=== PATIENT | female | born 1985 | race Caucasian/White ===

== ENCOUNTER 2019-07-21 20:51 | Emergency (ER) | payer SELFPAY ==
[2019-07-21 21:48] LABS: Bilirubin Negative (Negative); Blood, Urine Negative (Negative); Clarity Clear (Clear); Glucose, Urine (Dipstick) Negative (Negative); Leukocyte Negative (Negative); Nitrite Negative (Negative); Protein, Urine (Dipstick) Negative (Neg-Trace); Urobilinogen 0.2 mg/dL (Less than 2)
[2019-07-21 21:49] LABS: Pregnancy Test - Urine (BHCG) Negative (Negative); Pregu Control Background? CLEAR/WHITE (CLR/WHITE); Pregu Control Bar Appear? YES (CONTROL BAR); Specific Gravity 1.027 (1.002-1.036)
[2019-07-21] MEDS ORDERED: Dicyclomine 20 MG TAB ONE (22:27)
== END 2019-07-21 22:31 | disposition home or self-care (01) ==
LOC: SCSER 20:51
DX: R10.9 Unspecified abdominal pain (principal); F41.9 Anxiety disorder, unspecified; F17.210 Nicotine dependence, cigarettes, uncomplicated; Z79.899 Other long term (current) drug therapy
CPT/HCPCS: 81003; 81025; 99284

== ENCOUNTER 2019-08-07 21:06 | Emergency (ER) | payer SELFPAY ==
[2019-08-07 21:39] LABS: #Basophils 0.1 thou/uL (0.0-0.2); #Eosinphils 0.1 thou/uL (0.0-0.7); #Lymphocytes 3.5 thou/uL (1.20-3.40); #Monocytes 0.5 thou/uL (0.11-0.59); #Neutrophils 6.2 thou/uL (1.40-6.50); %Basophils 1.2 % (0.0-1.0); %Eosinophils 0.9 % (0.0-10.0); %Lymphocytes 33.2 % (21.0-51.0); %Monocytes 5.2 % (0.0-10.0); %Neutrophils 59.5 % (42.0-75.0); Mean Corpuscular HGB CONC 34.6 g/dL (32.0-36.0); Mean Corpuscular Volume 89.7 fL (78.0-98.0); Mean Platelet Volume 11.1 fL (7.4-10.4); Platelet Count 225 thou/uL (130-400); RBC Distribution Width 10.9 % (11.5-14.5); White Blood Cell (WBC) Count 10.4 thou/uL (4.8-10.8)
--- NOTE | 2019-08-07 21:45 | RAD ---
XR Chest 1 View Portable History: Shortness of breath Comparison: Radiograph 2013 Findings: Lungs are clear. No pneumothorax. No effusion. No acute osseous abnormality. Impression: No acute intrathoracic abnormality
[2019-08-07 21:51] LABS: ALT (SGPT) 21 U/L (8-55); AST (SGOT) 18 U/L (5-34); Albumin 4.4 g/dL (3.5-5.0); Alkaline Phosphatase 54 U/L (40-110); Anion Gap 16 mmol/L (10-20); BUN (Urea Nitrogen) 8 mg/dL (7.0-18.7); Bilirubin, Total 0.2 mg/dL (0.2-1.2); Calc. Creatinine Clearance 0 mL/min (70-130); Calcium 9.1 mg/dL (7.8-10.44); Carbon Dioxide 22 mmol/L (22-29); Chloride 106 mmol/L (98-107); Estimated GFR-MDRD 64; Globulin 2.9 g/dL (2.4-3.5); Glucose 88 mg/dL (70-105); Potassium 3.6 mmol/L (3.5-5.1); Protein, Total 7.3 g/dL (6.0-8.3)
[2019-08-07 22:04] LABS: BHCG - Serum Negative (NEGATIVE); Pregs Control Background? CLEAR/WHITE (CLR/WHITE); Pregs Control Bar Appear? YES (CONTROL BAR)
[2019-08-07 22:05] LABS: Sodium 140 mmol/L (136-145)
--- NOTE | 2019-08-07 23:05 | CT ---
CTA Angio Chest W WO Con History: Dyspnea Comparison: Radiograph same day Findings: CT angiogram chest performed after the intravenous administration of contrast. 3-D renderin g provided. No pulmonary embolism. No pneumothorax. No pericardial effusion. Prior cholecystectomy. Aortic contour is normal. No mediastinal adenopathy. No airspace consolidation. Thoracic spine, sternum, manubrium are all unremarkable. No acute displaced rib fracture. Impression: No pulmonary embolism or other acute intrathoracic abnormality.
== END 2019-08-07 23:20 | disposition home or self-care (01) ==
LOC: SCSER 21:06
DX: R06.02 Shortness of breath (principal); F41.9 Anxiety disorder, unspecified; F17.210 Nicotine dependence, cigarettes, uncomplicated; Z79.899 Other long term (current) drug therapy
CPT/HCPCS: 71045; 71275; 80053; 84484; 84703; 85025; 93005; 94760